=== PATIENT | female | born 1950 | race Caucasian/White ===

== ENCOUNTER → 2018-07-10 12:30 | Outpatient (CLI) | payer MEDICARE ==
[2013-04-08 13:36] VITALS: BMI 35.8
[~2018-07-10 12:30] MED LIST: NORCO 10/325 TA1 TA1 PO
== END | disposition home or self-care (01) ==
LOC: D.MRI 06-18 14:30
DX: M25.551 Pain in right hip (principal)

== ENCOUNTER 2019-01-11 17:23 | Inpatient (IN) | payer MEDICARE ==
[~2019-01-11] VITALS: Ht 171.4 cm; Wt 93.9 kg
[2019-01-11] MEDS ORDERED: LASIX40 MG PO (17:57)
[2019-01-11] MEDS ORDERED: COZAAR50 MG PO (17:58)
[2019-01-11] MEDS ORDERED: K-DUR20 MEQ PO (17:58)
[2019-01-11] MEDS ORDERED: FERROUS FUMARA324 MG PO (17:58)
[2019-01-11] MEDS ORDERED: [UNRECOGNIZED DRUG - OTHER] (17:59)
[2019-01-11] MEDS ORDERED: VITAMIN B-122500 MCG PO (17:59)
[2019-01-11] MEDS ORDERED: GALZIN50 MG PO (18:00)
[2019-01-11] MEDS ORDERED: ASCORBIC ACID500 MG PO (18:00)
[2019-01-11] MEDS ORDERED: MAG-OX 400 MG400 MG PO (18:00)
[2019-01-11 18:59] LABS: BASOPHILS 0.3 % (0-2); EOSINOPHILS 0.1 % (0-7); HEMOGLOBIN 9.7 g/dL (12-16); IMMATURE GRANULOCYTES 0.3 % (0-5); LYMPHOCYTES 23.7 % (15-50); MCH 40.6 pg (26.0-34.0); MCHC 37.3 g/dL (31.0-37.0); MCV 108.8 fL (80.0-100.0); MEAN PLATELET VOLUME 9.9 fL (7.4-10.4); MONOCYTES 7.9 % (2-11); NEUTROPHILS 67.7 % (40-80); PLATELET COUNT 197 10x3/uL (130-400); RBC 2.39 10x6/uL (4.00-5.40); RDW 15.9 % (11.5-14.5); WBC 7.5 10x3/uL (4.8-10.8)
[2019-01-11 19:15] LABS: INR 0.99 (0.85-1.17); PROTIME 12.6 SECONDS (11.6-15.0)
[2019-01-11 19:16] LABS: APTT 23.9 SECONDS (22.8-39.4)
[2019-01-11 19:38] LABS: ALBUMIN 3.4 g/dL (3.4-5.0); ALKALINE PHOSPHATASE 112 U/L (46-116); ALT (SGPT) 19 U/L (10-68); BILIRUBIN - TOTAL 0.57 mg/dL (0.2-1.3); CALC OSMOLALITY 289 mosm/kg (275-300); CALCIUM 8.6 mg/dL (8.5-10.1); CARBON DIOXIDE 27.1 mmol/L (21.0-32.0); CHLORIDE - SERUM 103 mmol/L (98-107); CKMB 1.2 U/L (0.0-3.6); CREATINE KINASE 81 UL (21-215); CREATININE - SERUM 1.8 mg/dL (0.6-1.3); GLUCOSE 127 mg/dL (74-106); MAGNESIUM - SERUM 2.6 mg/dL (1.8-2.4); PROTEIN - SERUM 6.7 g/dL (6.4-8.2); SODIUM 140 mmol/L (136-145); TROPONIN-I < 0.017 ng/mL (0.000-0.060); UREA NITROGEN 39 mg/dL (7-18); eGFR NON AFRICAN AMERICAN 30 mL/min (90-120)
[2019-01-11 19:42] LABS: THYROID STIMULATING HORMONE 73.14 uIU/mL (0.36-3.74)
[2019-01-11 20:14] VITALS: BP 131/52
[2019-01-11 20:44] LABS: APPEARANCE CLEAR (CLEAR); BILIRUBIN NEGATIVE (NEGATIVE); COLOR YELLOW (YELLOW); GLUCOSE NEGATIVE (NEGATIVE); KETONE NEGATIVE (NEGATIVE); NITRITE NEGATIVE (NEGATIVE); PROTEIN NEGATIVE (NEGATIVE); UROBILINOGEN NORMAL (NORMAL)
[2019-01-11 20:45] LABS: RED CELLS - URINE 0-5 /hpf (0-5)
[2019-01-11 20:47] LABS: BACTERIA MODERATE /hpf (NONE SEEN)
--- NOTE | 2019-01-11 21:00 | NUR ---
ADMITTED TO ROOM FROM ER ALERT, ORIENTIATED TO ROOM, SEE ASSESSMENT, CALL LIGHT IN REACH, INSTRUCTED TO CALL FOR ASSISTANCE BEFORE GETTIGN UP, VERBALIZED UNDERSTANDING
[2019-01-12 03:23] VITALS: BP 129/57; BMI 32.0
[2019-01-12 04:59] VITALS: BP 119/49
[2019-01-12 07:30] LABS: % SATURATION 23 % (15-55); IRON 68 ug/dl (35-150); TOTAL IRON BIND CAPACITY 291 ug/dl (260-445); UNSAT IRON BIND CAPACITY 223 ug/dl (150-375)
[2019-01-12 07:39] LABS: ALBUMIN 2.9 g/dL (3.4-5.0); ANION GAP 12.9 mmol/L (8-16); BILIRUBIN - TOTAL 0.44 mg/dL (0.2-1.3); CALCIUM 7.8 mg/dL (8.5-10.1); CARBON DIOXIDE 25.2 mmol/L (21.0-32.0); CREATININE - SERUM 1.6 mg/dL (0.6-1.3); MAGNESIUM - SERUM 2.5 mg/dL (1.8-2.4); POTASSIUM - SERUM 3.1 mmol/L (3.5-5.1); PROTEIN - SERUM 5.3 g/dL (6.4-8.2)
[2019-01-12 07:47] LABS: PHOSPHOROUS 3.8 mg/dL (2.5-4.9)
[2019-01-12 07:48] LABS: T4 THYROXIN - FREE 0.17 ng/dL (0.76-1.46)
[2019-01-12 07:57] LABS: BASOPHILS 0.2 % (0-2); EOSINOPHILS 1.2 % (0-7); HEMATOCRIT 22.5 % (36.0-48.0); HEMOGLOBIN 8.4 g/dL (12-16); IMMATURE GRANULOCYTES 0.4 % (0-5); LYMPHOCYTES 36.3 % (15-50); MCH 40.2 pg (26.0-34.0); MCHC 37.3 g/dL (31.0-37.0); MCV 107.7 fL (80.0-100.0); MONOCYTES 7.1 % (2-11); NEUTROPHILS 54.8 % (40-80); PLATELET COUNT 160 10x3/uL (130-400); RBC 2.09 10x6/uL (4.00-5.40); RDW 15.8 % (11.5-14.5)
[2019-01-12 08:04] LABS: WBC 5.1 10x3/uL (4.8-10.8)
[2019-01-12 08:59] VITALS: BP 122/52
[2019-01-12 13:11] VITALS: BP 128/52
[2019-01-12 14:46] VITALS: Ht 171.4 cm; Wt 93.9 kg
[2019-01-12 16:44] VITALS: BP 136/65
--- NOTE | 2019-01-12 16:55 | NUR ---
I have reviewed this patient and I concur with the Shift Assessment completed by the Licensed Practical Nurse today this shift.
--- NOTE | 2019-01-12 19:50 | NUR ---
UP IN BED WITH EYES OPEN, FAMILY AT BEDSIDE. IV TO LFA WITH FLUIDS INFUSING PER ORDERS. ABLE TO VOICE NEEDS. NO S/S OF ANY DISTRESS. WILL NOTE ANY CHANGE.
[2019-01-12 20:00] VITALS: BP 111/46
[2019-01-13] VITALS: BP 119/52
[2019-01-13 04:00] VITALS: BP 117/54
--- NOTE | 2019-01-13 05:03 | NUR ---
I have reviewed this patient and I concur with the Shift Assessment completed by the Licensed Practical Nurse today this shift.
--- NOTE | 2019-01-13 05:08 | NUR ---
RESTED WELL THIS SHIFT, NO S/S OF ANY ACUTE DISTRESS OR PAIN. WILL NOTE ANY CHANGE.
[2019-01-13 05:43] LABS: BASOPHILS 0.3 % (0-2); HEMOGLOBIN 8.3 g/dL (12-16); IMMATURE GRANULOCYTES 0.8 % (0-5); LYMPHOCYTES 45.5 % (15-50); MCH 41.5 pg (26.0-34.0); MCHC 37.7 g/dL (31.0-37.0); MEAN PLATELET VOLUME 9.9 fL (7.4-10.4); MONOCYTES 7.8 % (2-11); NEUTROPHILS 44.6 % (40-80); PLATELET COUNT 152 10x3/uL (130-400); WBC 3.9 10x3/uL (4.8-10.8)
[2019-01-13 06:01] LABS: ANION GAP 11.1 mmol/L (8-16); CALCIUM 7.1 mg/dL (8.5-10.1); CARBON DIOXIDE 26.2 mmol/L (21.0-32.0); CREATININE - SERUM 1.3 mg/dL (0.6-1.3); MAGNESIUM - SERUM 2.2 mg/dL (1.8-2.4); PHOSPHOROUS 2.9 mg/dL (2.5-4.9); POTASSIUM - SERUM 3.3 mmol/L (3.5-5.1)
--- NOTE | 2019-01-13 07:00 | NUR ---
SHIFT ASSESSMENT COMPLETED. PT CARE ASSUMED, PT AWAKE AND ALERT, NO SIGNS/SYMPTOMS OF PAIN OR DISCOMFORT NOTED AT THIS TIME, CALL LIGHT WITHIN REACH, WILL CONTINUE TO OBSERVE.
--- NOTE | 2019-01-13 07:22 | NUR ---
POTASSIUM OF 3.3 REPORTED, ATTEMPTED TO COVER SECONDARY TO ELECTROLYTE PROTOCOL, PATIENT REFUSED MEDICATION STATING SHE WILL NOT TAKE OUR MEDICATIONS, ONLY HER HOME MEDS AND THAT SHE SIGNED A PAPER IN THE ER STATING SUCH, THIS NURSE GOT PAPER AND ATTEMPTED TO EDUCATE ON MEANING BEHIND PAPER SHE SIGNED, DID NOT COMPREHEND, THIS NURSE WILL LET CASE MANAGEMENT BE AWARE AND REPORT OFF TO ONCOMING SHIFT.
[2019-01-13 09:11] VITALS: BP 123/48
[2019-01-13 11:10] LABS: THYROGLOBULIN ANTIBODY <1.0 IU/mL (0.0-0.9); THYROID PEROXIDASE ABS 72 IU/mL (0-34)
--- NOTE | 2019-01-13 11:33 | MORECARE ---
CASE MANAGEMENT DISCHARGE SUMMARY PATIENT: PETEY ALVAREZ UNIT: [id number] ADM DATE: 01/11/19 AGE: 68 : 49 SEX: F ROOM/BED: D.2238 AUTHOR: CANDI LUCIA PHYSICIAN: REFERRING PHYSICIAN: EUGENIO WOOD MD DATE OF SERVICE: 01/13/19 Discharge Plan Patient Name: PETEY ALVAREZ [facility] [facility] 1950 Planned Disposition: Correction Facility Anticipated Discharge Date: Discharge Date: Expected LOS: Initial Reviewer: [email or web address] Initial Review Date: 01/13/2019 Generated: 01/13/19 12:32 pm Patient Name: PETEY ALVAREZ Page [phone] at 1133 All edits/amendments must be made on the electronic document DICTATION DATE: 01/13/19 113 DIAMOND BLENDER: GABRIEL 01/13/19 1132 RPT#: [id number] DC DATE: STATUS: ADM IN [facility] [address] [place] [address] END OF REPORT
--- NOTE | 2019-01-13 11:44 | MORECARE ---
CASE MANAGEMENT DISCHARGE SUMMARY PATIENT: PETEY ALVAREZ UNIT: [id number] ADM DATE: 01/11/19 AGE: 68 : 49 SEX: F ROOM/BED: D.2238 AUTHOR: CANDI LUCIA PHYSICIAN: REFERRING PHYSICIAN: EUGENIO WOOD MD DATE OF SERVICE: 01/13/19 Discharge Plan Patient Name: PETEY ALVAREZ [facility] [facility] 1950 Planned Disposition: Nursing Home Facility Anticipated Discharge Date: Discharge Date: Expected LOS: Initial Reviewer: [email or web address] Initial Review Date: 01/13/2019 Generated: 01/13/19 12:43 pm DCPIA - Discharge Planning Initial Assessment Updated by [id number]: Carolina Munoz on 01/13/19 11:33 am * Is the patient Alert and Oriented? Yes * PCP MELBA * Pharmacy [facility] * Preadmission Environment Home Alone * ADLs Independent * Equipment Rolling Walker * Other Equipment BENCH * List name and contact numbers for known caregivers / representatives who currently or will assist patient after discharge: EZIO RAMOS, * Community resources currently utilized None * Additional services required to return to the preadmission environment? Yes * Can the patient safely return to the preadmission environment? No * Has this patient been hospitalized within the prior 30 days at any hospital? No Coverage Notice Reviewer: [email or web address] Guerline Munoz Notice Issued Date-Time: 01/13/2019 11:35 Notice Type: Patient Choice Letter Notice Delivered To: Patient Relationship to Patient: Car Sweeper Name: Delivery Method: HAND - Hand Delivered Hilary Days: Prior Verbal Notification: Recipient Understood Notice: Yes Recipient Signature: Yes Med Rec Note Co-signed by Attending: Coverage Notice Comment: ALISA Zhang DP export: 01/13/19 10:33 a Patient Name: PETEY ALVAREZ Page [id number] at 1144 All edits/amendments must be made on the electronic document DICTATION DATE: 01/13/19 1143 SUPPLY CHAIN COORDINATOR: GABRIEL 01/13/19 1143 RPT#: [id number] DC DATE: STATUS: ADM IN [facility] [address] [facility] [place] [address] END OF REPORT
[2019-01-13 12:47] VITALS: BP 141/58
--- NOTE | 2019-01-13 15:43 | MORECARE ---
CASE MANAGEMENT DISCHARGE SUMMARY PATIENT: PETEY ALVAREZ UNIT: [id number] ADM DATE: 01/11/19 AGE: 68 : 49 SEX: F ROOM/BED: D.[facility]8 AUTHOR: CANDI LUCIA PHYSICIAN: REFERRING PHYSICIAN: EUGENIO WOOD MD DATE OF SERVICE: 01/13/19 Discharge Plan Patient Name: PETEY ALVAREZ Facility: [facility]:[place] : 1950 Planned Disposition: Assisted Facility Anticipated Discharge Date: Discharge Date: Expected LOS: Initial Reviewer: [email or web address] Initial Review Date: 01/13/2019 Generated: 01/13/19 4:42 pm DCPIA - Discharge Planning Initial Assessment Updated by [id number]: Carolina Munoz on 01/13/19 11:33 am * Is the patient Alert and Oriented? Yes * PCP MELBA * [facility] * Preadmission Environment Home Alone * ADLs Independent * Equipment Rolling Walker * Other Equipment BENCH * List name and contact numbers for known caregivers / representatives who currently or will assist patient after discharge: EZIO RAMOS, * Community resources currently utilized None * Additional services required to return to the preadmission environment? Yes * Can the patient safely return to the preadmission environment? No * Has this patient been hospitalized within the prior 30 days at any hospital? No External Providers External Provider: [facility] Next Contact Date: Service Request Date: Service Type: Resolution: Reviewer: Comments: Coverage Notice Reviewer: [id number] - Carolina Munoz Notice Issued Date-Time: 01/13/2019 11:35 Notice Type: Patient Choice Letter Notice Delivered To: Patient Relationship to Patient: Hydrotel Operator Name: Delivery Method: HAND - Hand Delivered Hilary Days: Prior Verbal Notification: Recipient Understood Notice: Yes Recipient Signature: Yes Med Rec Note Co-signed by Attending: Coverage Notice Comment: ALISA CHAVEZ export: 01/13/19 10:44 a Patient Name: PETEY ALVAREZ Page 03991 at 1543 All edits/amendments must be made on the electronic document DICTATION DATE: 01/13/19 154 RIVET CATCHER: DM 01/13/19 154 RPT#: [id number] DC DATE: STATUS: ADM IN [facility] [address] [place] [address] END OF REPORT
[2019-01-13 17:01] VITALS: BP 117/55
[2019-01-13 20:00] VITALS: BP 125/81
--- NOTE | 2019-01-13 20:05 | NUR ---
REC'D CHGE OF SHIFT.IN BED SUPINE POSITION WATCHING TV. DENIES ANY NEW COMPLAINTS AT PRESENT TIME.1+EDEMA WITH REDNESS OBSERVED TENDERNESS STILL TO TOUCH. PEDAL PULSES PRESENT. WILL CONTINUE TO MONITOR FOR ANY CHGES IN CURRENT NEUROVASCULAR STATUS AND FOLLOW CURRENT PLAN OF CARE
--- NOTE | 2019-01-14 05:10 | NUR ---
I have reviewed this patient and I concur with the Shift Assessment completed by the Licensed Practical Nurse today this shift.
[2019-01-14 06:48] LABS: BASOPHILS 0.5 % (0-2); EOSINOPHILS 1.7 % (0-7); HEMATOCRIT 22.5 % (36.0-48.0); HEMOGLOBIN 8.4 g/dL (12-16); LYMPHOCYTES 44.5 % (15-50); MCH 41.2 pg (26.0-34.0); MCHC 37.3 g/dL (31.0-37.0); MCV 110.3 fL (80.0-100.0); MONOCYTES 7.3 % (2-11); PLATELET COUNT 163 10x3/uL (130-400); RBC 2.04 10x6/uL (4.00-5.40); RDW 15.7 % (11.5-14.5); WBC 4.1 10x3/uL (4.8-10.8)
[2019-01-14 06:53] LABS: CALCIUM 7.8 mg/dL (8.5-10.1); CARBON DIOXIDE 24.4 mmol/L (21.0-32.0); CREATININE - SERUM 1.2 mg/dL (0.6-1.3); MAGNESIUM - SERUM 2.3 mg/dL (1.8-2.4); PHOSPHOROUS 2.8 mg/dL (2.5-4.9); POTASSIUM - SERUM 3.4 mmol/L (3.5-5.1)
[2019-01-14 09:15] VITALS: BP 149/70
[2019-01-14 13:10] VITALS: BP 133/59
--- NOTE | 2019-01-14 15:26 | NUR ---
OT NOTE: PT COMPLETED BED MOB WITH SPV. PT COMPLETED SIT TO STAND WITH CGA. PT COMPLETED ADL MOB CGA. PT COMPLETED TOILETING TASKS WITH SPV. PT DOING WELL AND REQUIRED CGA WITH DYNAMIC STANDING AND ADL MOB . THANK YOU, JORGE A LOCKETT
[2019-01-14 18:10] VITALS: BP 107/46
[2019-01-14 19:55] VITALS: BP 115/48
[2019-01-15] VITALS: BP 124/51
--- NOTE | 2019-01-15 01:38 | NUR ---
RESTING IN BED NO S/S OF DISTRESS. IV TO LEFT FR WITH NS WITH 20 OF POTASSIUM. ALERT AND ORENTED ABLE TO VOICE NEEDS AND WANTS TO STAFF. BRUSING TO ABD. CALL LIGHT AND WATER IN REACH. BED LOW. NO NEEDS NOTED OR STATED AT THIS TIME.
[2019-01-15 04:00] VITALS: BP 133/61
[2019-01-15 07:04] LABS: CALCIUM 7.9 mg/dL (8.5-10.1); CARBON DIOXIDE 21.7 mmol/L (21.0-32.0); CREATININE - SERUM 1.3 mg/dL (0.6-1.3); MAGNESIUM - SERUM 2.4 mg/dL (1.8-2.4); PHOSPHOROUS 3.4 mg/dL (2.5-4.9); POTASSIUM - SERUM 3.7 mmol/L (3.5-5.1)
--- NOTE | 2019-01-15 07:19 | NUR ---
Nutrition follow-up: Diet: ADA consistent CHO PO intake 100% of some meals; pts food preferences being honored Labs reviewed; glucose WNL. Hiowever, pt reports allergic to sugar. Wt: 207# +BM RDN following.
[2019-01-15 07:52] LABS: BASOPHILS 0.5 % (0-2); EOSINOPHILS 1.9 % (0-7); HEMATOCRIT 20.5 % (36.0-48.0); IMMATURE GRANULOCYTES 0.5 % (0-5); LYMPHOCYTES 45.5 % (15-50); MCH 39.9 pg (26.0-34.0); MCHC 35.6 g/dL (31.0-37.0); MEAN PLATELET VOLUME 10.1 fL (7.4-10.4); MONOCYTES 5.8 % (2-11); NEUTROPHILS 45.8 % (40-80); PLATELET COUNT 153 10x3/uL (130-400); RDW 15.7 % (11.5-14.5); WBC 4.1 10x3/uL (4.8-10.8)
[2019-01-15 07:53] LABS: HEMOGLOBIN 7.3 g/dL (12-16)
[2019-01-15 07:55] LABS: RBC 1.83 10x6/uL (4.00-5.40)
[2019-01-15 08:30] VITALS: BP 143/50
[2019-01-15 12:47] VITALS: BP 126/56
--- NOTE | 2019-01-15 18:46 | NUR ---
I have reviewed this patient and I concur with the Shift Assessment completed by the Licensed Practical Nurse today this shift.
--- NOTE | 2019-01-15 19:46 | NUR ---
IN BED WITH EYES OPEN AND TELEVISION ON, UNIT OF BLOOD INFUSING TO PATENT IV PER ORDERS, VS WNL. ABLE TO VOICE ALL NEEDS, DENIES PAIN AT THIS TIME, BUT REQUESTS CUP OF ICE WATER. WILL NOTE ANY CHANGE.
[2019-01-15 20:00] VITALS: BP 120/45
[2019-01-16] VITALS: BP 121/47
[2019-01-16 04:00] VITALS: BP 123/61
--- NOTE | 2019-01-16 04:35 | NUR ---
I have reviewed this patient and I concur with the Shift Assessment completed by the Licensed Practical Nurse today this shift.
--- NOTE | 2019-01-16 06:07 | NUR ---
WAS UP THIS SHIFT AROUND EVERY TWO HOURS FOR REST ROOM, HAD A HARD TIME GETTING COMFORTABLE IN BED WITH HEELS RESTING ON BED, PILLOW SUPPLIED TO HELP BRIDGE HEELS, PATIENT SATISFIED WITH THIS INTERVENTION. WILL NOTE ANY CHANGE.
[2019-01-16 06:49] LABS: BASOPHILS 0.2 % (0-2); EOSINOPHILS 1.5 % (0-7); LYMPHOCYTES 25.6 % (15-50); MCH 36.1 pg (26.0-34.0); MCHC 36.1 g/dL (31.0-37.0); MEAN PLATELET VOLUME 9.7 fL (7.4-10.4); MONOCYTES 8.2 % (2-11); NEUTROPHILS 63.5 % (40-80); PLATELET COUNT 125 10x3/uL (130-400); RDW 23.6 % (11.5-14.5)
[2019-01-16 06:52] LABS: HEMATOCRIT 26.6 % (36.0-48.0); HEMOGLOBIN 9.6 g/dL (12-16); RBC 2.66 10x6/uL (4.00-5.40)
[2019-01-16 07:08] LABS: ANION GAP 13.2 mmol/L (8-16); CALCIUM 7.8 mg/dL (8.5-10.1); CARBON DIOXIDE 21.5 mmol/L (21.0-32.0); MAGNESIUM - SERUM 2.1 mg/dL (1.8-2.4); PHOSPHOROUS 3.3 mg/dL (2.5-4.9); POTASSIUM - SERUM 3.7 mmol/L (3.5-5.1)
--- NOTE | 2019-01-16 07:37 | NUR ---
PT RESTING IN BED WITH EYES OPEN. BREATHING EVEN AND NONLABORED. ASSISTED OUT OF BED AND TO THE BATHROOM. DENIES ANY FURTHER NEEDS AT THIS TIME. BED LOW, CALL LIGHT IN REACH, RAILS UP X 1. WILL CONTINUE TO MONITOR.
[2019-01-16 09:35] VITALS: BP 140/58
[2019-01-16 13:16] VITALS: BP 117/59
[2019-01-16 17:16] VITALS: BP 131/53
--- NOTE | 2019-01-16 19:15 | NUR ---
PATIENT ALERT AND ORIENTED. WATCHING TV WITH HOB ELEVATED. PATIENT HAS NOTICEABLE EDEMA IN BILATERAL LOWER EXTREMETIES, MAINLY AROUND ANKLE AREA. SKIN TENDER TO TOUCH IN BILATERAL LOWER EXTREMETIES. PATIENT DISPLAYS RANGE OF MOTION IN BILATERAL LOWER EXTREMETIES. DENIES PAIN OTHER THAN TOUCH TO AREA. GOWN STAINED WITH DRIED BLOOD. OFFERED PATIENT SHOWER. STATES THAT IV IN THE LEFT FOREARM IS ITCHY AND BOTHERSOME. ASKED TO BE DC'D IF ABLE. DC'D WITH TIP INTACT. WET PROCESS HEAD MILLER HELPED PATIENT TO SHOWER. DENIES FURTHER ISSUES AT THIS TIME. CALL LIGHT IN REACH. CPOC.
[2019-01-16 20:00] VITALS: BP 144/64
[2019-01-17] VITALS: BP 114/55
[2019-01-17 04:00] VITALS: BP 118/55
[2019-01-17 06:06] LABS: BASOPHILS 0.6 % (0-2); EOSINOPHILS 2.8 % (0-7); HEMATOCRIT 26.1 % (36.0-48.0); HEMOGLOBIN 9.5 g/dL (12-16); IMMATURE GRANULOCYTES 1.1 % (0-5); LYMPHOCYTES 35.1 % (15-50); MCH 36.5 pg (26.0-34.0); MCHC 36.4 g/dL (31.0-37.0); MCV 100.4 fL (80.0-100.0); MEAN PLATELET VOLUME 9.9 fL (7.4-10.4); MONOCYTES 10.2 % (2-11); NEUTROPHILS 50.2 % (40-80); PLATELET COUNT 123 10x3/uL (130-400); WBC 3.6 10x3/uL (4.8-10.8)
[2019-01-17 06:40] LABS: ANION GAP 12.6 mmol/L (8-16); CALCIUM 7.5 mg/dL (8.5-10.1); CARBON DIOXIDE 22.8 mmol/L (21.0-32.0); MAGNESIUM - SERUM 2.2 mg/dL (1.8-2.4); PHOSPHOROUS 3.5 mg/dL (2.5-4.9); POTASSIUM - SERUM 3.4 mmol/L (3.5-5.1)
--- NOTE | 2019-01-17 06:52 | NUR ---
I have reviewed this patient and I concur with the Shift Assessment completed by the Licensed Practical Nurse today this shift.
--- NOTE | 2019-01-17 07:20 | NUR ---
PT RESTING IN BED WITH EYES OPEN PLAYING ON HER CELL PHONE. BREATHING EVEN AND NONLABORED, DENIES ANY PAIN OR NEEDS AT THIS TIME. NO IV ACCESS NOTED. BED LOW, CALL LIGHT IN REACH, RAILS UP X 1.
[2019-01-17 08:07] VITALS: BP 107/47
--- NOTE | 2019-01-17 10:00 | NUR ---
COLLECTED STOOL SAMPLE, PT STATES SHE KNOWS IT WILL HAVE BLOOD IN IT DUE TO THE FACT THAT SHE HAS HEMMOROIDS. DELIVERED TO LAB.
[2019-01-17 14:01] VITALS: BP 129/61
[2019-01-17 17:28] VITALS: BP 125/55
--- NOTE | 2019-01-17 19:15 | NUR ---
ENETERED PATIENT ROOM AND SEVERAL GUESTS VISITING PATIENT. PATIENT DENIES ISSUES AT THIS TIME. WILL RETURN TO PERFORM ASSESSMENT AFTER VISITORS LEAVE. ENCOURAGED PATIENT TO USE CALL LIGHT IF IN NEED OF ASSISTANCE.
[2019-01-17 20:00] VITALS: BP 133/86
--- NOTE | 2019-01-17 20:20 | NUR ---
PATIENT ALERT AND ORIENTED. STATES "I HAD A MUCH BETTER DAY TODAY." PATIENT AMBULATES TO BATHROOM WITH MINIMAL ASSIST. HAS WALKER IN ROOM. PATIENT HAS BRUISING TO STOMACH FROM PREVIOUS LOVENOX INJECTIONS. STATES THAT SHE HAS HAD MINIMAL BLEEDING FROM SITES TODAY. EDUCATED ON UPCOMING MEDICATIONS. DENIES QUESTIONS OR CONCERNS. STATES "I LIKE THE ELIQUIS INSTEAD OF THE SHOTS." CALL LIGHT IS IN REACH. PATIENT DOES NOT HAVE AN IV AT THIS TIME. CPOC.
--- NOTE | 2019-01-18 02:47 | NUR ---
I have reviewed this patient and I concur with the Shift Assessment completed by the Licensed Practical Nurse today this shift.
[2019-01-18 04:00] VITALS: BP 122/55
--- NOTE | 2019-01-18 07:14 | NUR ---
ALERT AND ORIENTED. LUNGS CLEAR BILATERALLY IN ALL WONG. HEART SOUNDS S1 AND S2 HEARD IN ALL WONG. BOWEL SOUNDS ACTIVE X 4. EDEMA TO BLE. SKIN INTACT WITHOUT REDNESS. DENIES PAIN. DENIES NEEDS. BED LOW. CALL GAMBLE AND PERSONAL ITEMS INREACH WILL CONTINUE TO MONITOR.
[2019-01-18 08:34] VITALS: BP 135/51
[2019-01-18 09:06] LABS: POTASSIUM - SERUM 3.8 mmol/L (3.5-5.1)
--- NOTE | 2019-01-18 10:05 | NUR ---
RESTING IN BED. DENIES PAIN. DENIES NEEDS. WILL CONTINUE TO MONITOR.
[2019-01-18 12:38] LABS: BASOPHILS 0.5 % (0-2); EOSINOPHILS 2.9 % (0-7); HEMOGLOBIN 9.6 g/dL (12-16); IMMATURE GRANULOCYTES 0.7 % (0-5); LYMPHOCYTES 38.9 % (15-50); MCH 36.6 pg (26.0-34.0); MCHC 35.6 g/dL (31.0-37.0); MEAN PLATELET VOLUME 9.9 fL (7.4-10.4); MONOCYTES 12.2 % (2-11); NEUTROPHILS 44.8 % (40-80); PLATELET COUNT 125 10x3/uL (130-400); RBC 2.62 10x6/uL (4.00-5.40); RDW 22.5 % (11.5-14.5); WBC 4.2 10x3/uL (4.8-10.8)
[2019-01-18 12:49] LABS: MCV 103.1 fL (80.0-100.0)
[2019-01-18 13:13] LABS: CALCIUM 7.7 mg/dL (8.5-10.1); CARBON DIOXIDE 22.8 mmol/L (21.0-32.0); CREATININE - SERUM 1.1 mg/dL (0.6-1.3)
--- NOTE | 2019-01-18 13:36 | NUR ---
RESTING IN BED. DENIES PAIN. DENIES NEEDS. WILL CONTINUE TO MONITOR.
[2019-01-18 13:48] VITALS: BP 153/63
--- NOTE | 2019-01-18 14:05 | NUR ---
PATIENT IN ROOM CRYING BECAUSE THOUGHT WAS DISCHARGING TO REHAB TODAY BUT WAS TOLD OTHERWISE. SPOKE WITH CASE MANAGEMENT [facility] WHO STATED WILL GO TALK TO PATIENT.
--- NOTE | 2019-01-18 15:23 | NUR ---
OT NOTE: PT IS COOPERATIVE AND EXHIBITS STEADY PROGRESSION WITH FUNCTIONAL ABILITIES. PT COMPLETED DYNAMIC STANDING ACTIVITIES FOR INCREASED I WITH ADLS. PT REQUIRED SBA/CGA. THANK YOU, JORGE A LOCKETT
--- NOTE | 2019-01-18 16:57 | NUR ---
RESTING IN BED. DENIES PAIN. DENIES NEEDS. WILL CONTINUE TO MONITOR.
[2019-01-18 17:18] VITALS: BP 150/70
--- NOTE | 2019-01-18 18:08 | NUR ---
RESTING IN BED. DENIES PAIN. DENIES NEEDS. BED LOW. CALL GAMBLE AND PERSONAL ITEMS IN REACH. WILL CONTINUE TO MONITOR.
--- NOTE | 2019-01-18 20:21 | NUR ---
1900) REC'D AT CHGE OF SHIFT WALKING ROUNDS WITH SHA MIN LOWER EXT REMAINS SWOLLEN WITH SOME REDNESS.FEET PINK AND WARM PEDAL PULSES PRESENT.DOES C/O SOME DECREASE IN SENSATION WIGGLES TOES AND DORSIFLEXES WITHOUT DIFFICULTY.WILL CONTINUE TO MONITOR FOR ANY CHGES.AND FOLLOW CURRENT PLAN OF CARE.
[2019-01-18 21:15] VITALS: BP 131/48
[2019-01-19 01:53] VITALS: BP 128/52
[2019-01-19 05:36] VITALS: BP 138/58
--- NOTE | 2019-01-19 07:45 | NUR ---
ALERT AND ORIENTED. LUNGS CLEAR BILATERALLY IN ALL WONG. HEART SOUNDS S1 AND S2 HEARD IN ALL WONG. BOWEL SOUNDS ACTIVE X 4. SKIN INTACT WITHOUT REDNESS. EDEMA NOTED TO BLE. PATIENT STATES IS MUCH BETTER THAN HAS BEEN. NO IV. DENIES PAIN. DENIES NEEDS. BED LOW. CALL GAMBLE AND PERSONAL ITEMS IN REACH. WILL CONTINUE TO MONITOR.
[2019-01-19 08:59] VITALS: BP 151/58
--- NOTE | 2019-01-19 10:41 | NUR ---
RESTING IN BED. DENIES PAIN. DENIES NEEDS. WILL CONTINUE TO MONITOR.
--- NOTE | 2019-01-19 11:30 | MORECARE ---
CASE MANAGEMENT DISCHARGE SUMMARY PATIENT: PETEY ALVAREZ UNIT: [id number] ADM DATE: 01/11/19 AGE: 68 : 49 SEX: F ROOM/BED: D.2238 AUTHOR: REA,DOC PHYSICIAN: REFERRING PHYSICIAN: EUGENIO WOOD MD DATE OF SERVICE: 01/19/19 Discharge Plan Patient Name: PETEY ALVAREZ Facility: [facility]:[place] : 1950 Planned Disposition: Residential Facility Anticipated Discharge Date: Discharge Date: Expected LOS: Initial Reviewer: [id number] Initial Review Date: 01/13/2019 Generated: 01/19/19 12:29 pm Comments DCP- Discharge Planning Updated by [email or web address]: Carolina Munoz on 01/19/19 10:[address] Patient Name: PETEY ALVAREZ Admission Status: ER Accout number: [id number] Admission Date: 01-11-2019 : 1950 Admission Diagnosis:ACUTE EMBOLISM AND THOMBOS UNSP DEEP VEINS OF L LOW EXT Attending: EUGENIO WOOD Current LOS: 8 Anticipated DC Date: Planned Disposition: Residential Facility Primary Insurance: [employer] ADV Discharge Planning Comments: CM SPOKE WITH [facility] AT [place] AND NEEDS UPDATED NOTES. NOTES FAXED TO [facility] AT [phone]. CM WAITING FOR CALL BACK WITH SNF AUTH. Stock Checkerer: Carolina Munoz DCPIA - Discharge Planning Initial Assessment Updated by [id number]: Carolina Munoz on 01/13/19 11:33 am * Is the patient Alert and Oriented? Yes * PCP MELBA * [facility]acy [facility] * Preadmission Environment Home Alone * ADLs Independent * Equipment Rolling Walker * Other Equipment BENCH * List name and contact numbers for known caregivers / representatives who currently or will assist patient after discharge: EZIO RAMOS, * Community resources currently utilized None * Additional services required to return to the preadmission environment? Yes * Can the patient safely return to the preadmission environment? No * Has this patient been hospitalized within the prior 30 days at any hospital? No Coverage Notice Reviewer: [id number] - Carolina Munoz Notice Issued Date-Time: 01/13/2019 11:35 Notice Type: Patient Choice Letter Notice Delivered To: Patient Relationship to Patient: Performance Specialist Name: Delivery Method: HAND - Hand Delivered Hilary Days: Prior Verbal Notification: Recipient Understood Notice: Yes Recipient Signature: Yes Med Rec Note Co-signed by Attending: Coverage Notice Comment: ALISA CHAVEZ export: 01/13/19 2:43 p Patient Name: PETEY ALVAREZ Page 18767 at 1130 All edits/amendments must be made on the electronic document DICTATION DATE: 01/19/19 1129 METAL MACHINE OPERATOR: GABRIEL 01/19/19 1129 RPT#: [id number] DC DATE: STATUS: ADM IN [address] [place] [address] END OF REPORT
--- NOTE | 2019-01-19 12:34 | NUR ---
RESTING IN BED. DENIES PAIN. DENIES NEEDS. WILL CONTINUE TO MONITOR.
[2019-01-19 14:23] VITALS: BP 122/50
--- NOTE | 2019-01-19 15:08 | NUR ---
OT NOTE: PT COMPLETED HYGIENE TASKS WITH SPV. PT COMPLETED ADL MOB WITH SPV. PT VERY MOTIVATED. PT STATED SHE IS CONCERNED THAT SHE WILL MISS [facility] ON FRIDAY. JULES SUGGESTED SHE SPEAK TO NURSING. THANK YOU, JORGE A LOCKETT
--- NOTE | 2019-01-19 15:35 | NUR ---
RESTING IN BED. DENIES PAIN. DENIES NEEDS. WILL CONTINUE TO MONITOR.
[2019-01-19 17:51] VITALS: BP 145/54
--- NOTE | 2019-01-19 18:20 | NUR ---
RESTING IN BED. DENIES PAIN. DENIES NEEDS. WILL CONTINUE TO MONITOR.
--- NOTE | 2019-01-19 19:40 | NUR ---
in bed talking on phone.lower ext. and feet 1-2+ edema observed with some redness and numbness still.pedal pulse present wiggles toes and dorsiflexes denies calf pain or tenderness at present time. will continue to monitor for any chges in neurovascular status and follow current plan of care.
[2019-01-19 21:16] VITALS: BP 118/56
[2019-01-20 00:56] VITALS: BP 121/47
[2019-01-20 05:54] VITALS: BP 126/55
--- NOTE | 2019-01-20 06:07 | NUR ---
I have reviewed this patient and I concur with the Shift Assessment completed by the Licensed Practical Nurse today this shift.
--- NOTE | 2019-01-20 07:20 | NUR ---
REPORT RECEIVED. PT ALERT AND ORIENTED. SITTING ON SIDE OF BED. ABOUT TO USE WALKER AND GO TO RESTROOM. WAS TOLD IN REPORT THAT SHE IS WAITING ON PLACEMENT TO [facility]. PT DENIES ANY PAIN AT THIS TIME.
[2019-01-20 07:39] LABS: BASOPHILS 0.2 % (0-2); EOSINOPHILS 2.7 % (0-7); HEMATOCRIT 26.4 % (36.0-48.0); HEMOGLOBIN 9.4 g/dL (12-16); IMMATURE GRANULOCYTES 0.5 % (0-5); LYMPHOCYTES 42.3 % (15-50); MCH 36.6 pg (26.0-34.0); MCHC 35.6 g/dL (31.0-37.0); MCV 102.7 fL (80.0-100.0); MONOCYTES 9.5 % (2-11); NEUTROPHILS 44.8 % (40-80); PLATELET COUNT 130 10x3/uL (130-400); RBC 2.57 10x6/uL (4.00-5.40); RDW 21.2 % (11.5-14.5)
[2019-01-20 07:47] LABS: ANION GAP 11.6 mmol/L (8-16); CALCIUM 8.3 mg/dL (8.5-10.1); CARBON DIOXIDE 25.2 mmol/L (21.0-32.0); POTASSIUM - SERUM 3.8 mmol/L (3.5-5.1)
[2019-01-20 08:00] VITALS: BP 131/53
--- NOTE | 2019-01-20 09:00 | NUR ---
SOME TENDERNESS TO LOWER EXTREMITIES. PULSES PALPABLE IN BILATERAL FEET. SOME SWELLING NOTED. NO NEEDS AT THIS TIME. WILL CONTINUE TO MONITOR.
[2019-01-20 10:17] VITALS: BP 131/53
--- NOTE | 2019-01-20 11:03 | NUR ---
PT RESTING QUIETLY. NO DISTRESS NOTED. BED IN LOWEST POSITION. CALL LIGHT IN REACH.
--- NOTE | 2019-01-20 12:20 | MORECARE ---
CASE MANAGEMENT DISCHARGE SUMMARY PATIENT: PETEY ALVAREZ UNIT: [id number] ADM DATE: 01/11/19 AGE: 68 : 49 SEX: F ROOM/BED: D.2238 AUTHOR: REA,DOC PHYSICIAN: REFERRING PHYSICIAN: EUGENIO WOOD MD DATE OF SERVICE: 01/20/19 Discharge Plan Patient Name: PETEY ALVAREZ Facility: [facility]:[place] : 1950 Planned Disposition: Retirement Facility Anticipated Discharge Date: Discharge Date: Expected LOS: Initial Reviewer: [email or web address] Initial Review Date: 01/13/2019 Generated: 01/20/19 1:19 pm Comments DCP- Discharge Planning Updated by [id number]: Carolina Munoz on 01/20/19 11:[address] Patient Name: PETEY ALVAREZ Admission Status: ER Accout number: [id number] Admission Date: 01-11-2019 : 1950 Admission Diagnosis:ACUTE EMBOLISM AND THOMBOS UNSP DEEP VEINS OF L LOW EXT Attending: EUGENIO WOOD Current LOS: 9 Anticipated DC Date: Planned Disposition: Retirement Facility Primary Insurance: [employer] MEDICARE ADV Discharge Planning Comments: Called [facility], states they are still working on auth and I was placed on hold for over 15min., so I had to hang up. I emailed Erin with [employer] to see if she could tell me if [facility] has actually put in an auth. CM WILL FOLLOW AND ASSIST. Vamp Stitcher: Carolina Munoz DCP- Discharge Planning Updated by [id number]: Carolina Munoz on 01/19/19 10:[address] Patient Name: PETEY ALVAREZ Admission Status: ER Accout number: [id number] Admission Date: 01-11-2019 : 1950 Admission Diagnosis:ACUTE EMBOLISM AND THOMBOS UNSP DEEP VEINS OF L LOW EXT Attending: EUGENIO WOOD Current LOS: 8 Anticipated DC Date: Planned Disposition: Retirement Facility Primary Insurance: [employer] MEDICARE ADV Discharge Planning Comments: CM SPOKE WITH [facility] AT [place] AND NEEDS UPDATED NOTES. NOTES FAXED TO [facility] AT [phone]. CM WAITING FOR CALL BACK WITH SNF AUTH. Vamp Stitcher: Carolina Munoz DCPIA - Discharge Planning Initial Assessment Updated by [id number]: Carolina Munoz on 01/13/19 11:33 am * Is the patient Alert and Oriented? Yes * PCP MELBA * [facility] * Preadmission Environment Home Alone * ADLs Independent * Equipment Rolling Walker * Other Equipment BENCH * List name and contact numbers for known caregivers / representatives who currently or will assist patient after discharge: EZIO RAMOS, * Community resources currently utilized None * Additional services required to return to the preadmission environment? Yes * Can the patient safely return to the preadmission environment? No * Has this patient been hospitalized within the prior 30 days at any hospital? No Coverage Notice Reviewer: [id number] - Carolina Munoz Notice Issued Date-Time: 01/13/2019 11:35 Notice Type: Patient Choice Letter Notice Delivered To: Patient Relationship to Patient: Train System Operator Name: Delivery Method: HAND - Hand Delivered Hilary Days: Prior Verbal Notification: Recipient Understood Notice: Yes Recipient Signature: Yes Med Rec Note Co-signed by Attending: Coverage Notice Comment: RUTHY CHAVEZ export: 01/19/19 10:30 a Patient Name: PETEY ALVAREZ Page 21775 at 1220 All edits/amendments must be made on the electronic document DICTATION DATE: 01/20/191218 GENETICS PHYSICIAN: GABRIEL 01/20/19 1219 RPT#: [id number] DC DATE: STATUS: ADM IN [facility] [address] [place] [address] END OF REPORT
[2019-01-20 13:44] VITALS: BP 133/58
--- NOTE | 2019-01-20 15:11 | NUR ---
nUtrition follow-up: Diet: ADA consistent CHO PO intake 75-100% of meals Labs reviewed Wt: 204# +BM Pt to d/c to [facility] RDN following.
--- NOTE | 2019-01-20 15:22 | MORECARE ---
CASE MANAGEMENT DISCHARGE SUMMARY PATIENT: PETEY ALVAREZ UNIT: [id number] ADM DATE: 01/11/19 AGE: 68 : 49 SEX: F ROOM/BED: D.2238 AUTHOR: REA,DOC PHYSICIAN: REFERRING PHYSICIAN: EUGENIO WOOD MD DATE OF SERVICE: 01/20/19 Discharge Plan Patient Name: PETEY ALVAREZ Facility: [facility]:[place] : 1950 Planned Disposition: Alf Facility Anticipated Discharge Date: Discharge Date: Expected LOS: Initial Reviewer: [email or web address] Initial Review Date: 01/13/2019 Generated: 01/20/19 4:22 pm Comments DCP- Discharge Planning Updated by [id number]: Carolina Munoz on 01/20/19 2:[address] Patient Name: PETEY ALVAREZ Admission Status: ER Accout number: [id number] Admission Date: 01-11-2019 : 1950 Admission Diagnosis:ACUTE EMBOLISM AND THOMBOS UNSP DEEP VEINS OF L LOW EXT Attending: EUGENIO WOOD Current LOS: 9 Anticipated DC Date: Planned Disposition: Alf Facility Primary Insurance: [employer]IC[employer] ADV Discharge Planning Comments: Called [facility], states they are still working on auth and I was placed on hold for over 15min., so I had to hang up. I emailed Erin with [facility] to see if she could tell me if [facility] has actually put in an auth. CM WILL FOLLOW AND ASSIST. Used Car Make Ready Mechanic: Carolina Munoz Appended by Carolina Munoz on 01/20/2019 15:16 CDT: RECEIVED AUTH FOR [facility] FROM [facility] WITH [facility]. DANYELLE AND AVILA GUERRERO AT [facility] [phone], LEFT VOICE MESSAGE. DCP- Discharge Planning Updated by [email or web address]: Carolina Munoz on 01/19/19 10:[address] Patient Name: PETEY ALVAREZ Admission Status: ER Accout number: [id number] Admission Date: 01-11-2019 : 1950 Admission Diagnosis:ACUTE EMBOLISM AND THOMBOS UNSP DEEP VEINS OF L LOW EXT Attending: EUGENIO WOOD Current LOS: 8 Anticipated DC Date: Planned Disposition: Alf Facility Primary Insurance: [employer]ICARE ADV Discharge Planning Comments: CM SPOKE WITH [facility] AT [place] AND NEEDS UPDATED NOTES. NOTES FAXED TO [facility] AT [phone]. CM WAITING FOR CALL BACK WITH SNF AUTH. Used Car Make Ready Mechanic: Carolina Munoz DCPIA - Discharge Planning Initial Assessment Updated by [email or web address]: Carolina Munoz on 01/13/19 11:33 am * Is the patient Alert and Oriented? Yes * PCP MELBA * [facility] * Preadmission Environment Home Alone * ADLs Independent * Equipment Rolling Walker * Other Equipment BENCH * List name and contact numbers for known caregivers / representatives who currently or will assist patient after discharge: EZIO RAMOS, * Community resources currently utilized None * Additional services required to return to the preadmission environment? Yes * Can the patient safely return to the preadmission environment? No * Has this patient been hospitalized within the prior 30 days at any hospital? No Coverage Notice Reviewer: [email or web address] - Carolina Munoz Notice Issued Date-Time: 01/13/2019 11:35 Notice Type: Patient Choice Letter Notice Delivered To: Patient Relationship to Patient: Assistant Financial Accountant Name: Delivery Method: HAND - Hand Delivered Hilary Days: Prior Verbal Notification: Recipient Understood Notice: Yes Recipient Signature: Yes Med Rec Note Co-signed by Attending: Coverage Notice Comment: RUTHY Zhang DP export: 01/20/19 11:20 a Patient Name: PETEY ALVAREZ Page [id number] at 1522 All edits/amendments must be made on the electronic document DICTATION DATE: 01/20/19 1521 PERSONALIZED LIVING ASSISTANT: GABRIEL 01/20/19 1521 RPT#: [id number] DC DATE: STATUS: ADM IN [facility] [address] [place] [address] END OF REPORT
[2019-01-20] MEDS ORDERED: ASPIRIN325 MG PO (15:39)
[2019-01-20] MEDS ORDERED: SYNTHROID50 MCG PO (15:40)
[2019-01-20] MEDS ORDERED: FOLIC ACID1 MG PO (15:40)
[2019-01-20] MEDS ORDERED: PROTONIX40 MG PO (15:40)
[2019-01-20] MEDS ORDERED: ELIQUIS5 MG PO (15:41)
--- NOTE | 2019-01-20 15:44 | MORECARE ---
CASE MANAGEMENT DISCHARGE SUMMARY PATIENT: PETEY ALVAREZ UNIT: [id number] ADM DATE: 01/11/19 AGE: 68 : 49 SEX: F ROOM/BED: D.2238 AUTHOR: REA,DOC PHYSICIAN: REFERRING PHYSICIAN: EUGENIO WOOD MD DATE OF SERVICE: 01/20/19 Discharge Plan Patient Name: PETEY ALVAREZ Facility: [facility]:[place] : 1950 Planned Disposition: [facility] Facility Anticipated Discharge Date: Discharge Date: Expected LOS: Initial Reviewer: [email or web address] Initial Review Date: 01/13/2019 Generated: 01/20/19 4:44 pm Comments DCP- Discharge Planning Updated by [id number]: Carolina Munoz on 01/20/19 2:[address] Patient Name: PETEY ALVAREZ Admission Status: ER Accout number: [id number] Admission Date: 01-11-2019 : 1950 Admission Diagnosis:ACUTE EMBOLISM AND THOMBOS UNSP DEEP VEINS OF L LOW EXT Attending: EUGENIO WOOD Current LOS: 9 Anticipated DC Date: Planned Disposition: [facility] Facility Primary Insurance: [employer] ADV Discharge Planning Comments: Called [facility], states they are still working on auth and I was placed on hold for over 15min., so I had to hang up. I emailed Erin with [employer] to see if she could tell me if [facility] has actually put in an auth. CM WILL FOLLOW AND ASSIST. Insurance Job Titles: Carolina Munoz Appended by Carolina Munoz on 01/20/2019 15:16 CDT: RECEIVED AUTH FOR [facility] FROM [facility] WITH [employer]. DANYELLE AND AVILA PLASENCIAER AT [facility] [phone], LEFT VOICE MESSAGE. Appended by Carolina Munoz on 01/20/2019 15:37 CDT: PATIENT ACCEPTED, AVILA FROM [facility] CALLED AND THEY WILL HAVE VAN TO RUBBER AND PLASTICS WORKER BEFORE 5 TODAY. DCP- Discharge Planning Updated by [id number]: Carolina Munoz on 01/19/19 10:[address] Patient Name: PETEY ALVAREZ Admission Status: ER Accout number: [id number] Admission Date: 01-11-2019 : 1950 Admission Diagnosis:ACUTE EMBOLISM AND THOMBOS UNSP DEEP VEINS OF L LOW EXT Attending: EUGENIO WOOD Current LOS: 8 Anticipated DC Date: Planned Disposition: [facility] Facility Primary Insurance: [employer] ADV Discharge Planning Comments: CM SPOKE WITH [facility] AT [facility] AND NEEDS UPDATED NOTES. NOTES FAXED TO [facility] AT [phone]. CM WAITING FOR CALL BACK WITH SNF AUTH. Insurance Job Titles: Carolina Munoz DCPIA - Discharge Planning Initial Assessment Updated by [email or web address]: Carolina Munoz on 01/13/19 11:33 am * Is the patient Alert and Oriented? Yes * PCP [facility] * [facility]acy [facility] * Preadmission Environment Home Alone * ADLs Independent * Equipment Rolling Walker * Other Equipment BENCH * List name and contact numbers for known caregivers / representatives who currently or will assist patient after discharge: EZIO RAMOS, * Community resources currently utilized None * Additional services required to return to the preadmission environment? Yes * Can the patient safely return to the preadmission environment? No * Has this patient been hospitalized within the prior 30 days at any hospital? No Coverage Notice Reviewer: [id number] - Carolina Munoz Notice Issued Date-Time: 01/13/2019 11:35 Notice Type: Patient Choice Letter Notice Delivered To: Patient Relationship to Patient: Sensor Operator Name: Delivery Method: HAND - Hand Delivered Hilary Days: Prior Verbal Notification: Recipient Understood Notice: Yes Recipient Signature: Yes Med Rec Note Co-signed by Attending: Coverage Notice Comment: ROSACRANFORD Last DP export: 01/20/19 2:22 p Patient Name: PETEY ALVAREZ Page [id number] at 1544 All edits/amendments must be made on the electronic document DICTATION DATE: 01/20/19 154 CYLINDER PRESS FEEDER: GABRIEL 01/20/19 1544 RPT#: [id number] DC DATE: STATUS: ADM IN [facility] [address] [place] [address] END OF REPORT
--- NOTE | 2019-01-20 16:06 | NUR ---
REPORT CALLED TO BRIAN AT [facility].
--- NOTE | 2019-01-20 16:06 | NUR ---
PATIENT DRESSED AND WAITING FOR TRANSPORTATION. NO IV IN. CALL [facility] WITHIN REACH.
[2019-01-20 17:08] VITALS: BP 125/68
--- NOTE | 2019-01-28 08:31 | MORECARE ---
CASE MANAGEMENT DISCHARGE SUMMARY PATIENT: PETEY ALVAREZ UNIT: [id number] ADM DATE: 01/11/19 AGE: 68 : 49 SEX: F ROOM/BED: D.2238 AUTHOR: REA,DOC PHYSICIAN: REFERRING PHYSICIAN: EUGENIO WOOD MD DATE OF SERVICE: 01/28/19 Discharge Plan Patient Name: PETEY ALVAREZ Facility: [facility]:[place] : 1950 Planned Disposition: Half-Way Facility Anticipated Discharge Date: Discharge Date: 01/20/2019 Expected LOS: 0 Initial Reviewer: [id number] Initial Review Date: 01/13/2019 Generated: 01/28/19 9:30 am Comments DCP- Discharge Planning Updated by [id number]: Carolina Munoz on 01/20/19 2:[address] Patient Name: PETEY ALVAREZ Admission Status: ER Accout number: [id number] Admission Date: 01-11-2019 : 1950 Admission Diagnosis:ACUTE EMBOLISM AND THOMBOS UNSP DEEP VEINS OF L LOW EXT Attending: EUGENIO WOOD Current LOS: 9 Anticipated DC Date: Planned Disposition: Half-Way Facility Primary Insurance: [facility] [employer] ADV Discharge Planning Comments: Called [facility], they are still working on auth and I was placed on hold for over 15min., so I had to hang up. I emailed Erin with [employer] to see if she could tell me if [facility] has actually put in an auth. CM WILL FOLLOW AND ASSIST. Sizing Machine And Drier Operator: Carolina Munoz Appended by Carolina Munoz on 01/20/2019 15:16 CDT: RECEIVED AUTH FOR [facility] FROM [facility] WITH [employer]. DANYELLE AND AVILA GUERRERO AT [facility] [phone], LEFT VOICE MESSAGE. Appended by Carolina Munoz on 01/20/2019 15:37 CDT: PATIENT ACCEPTED, AVILA FROM [facility] CALLED AND THEY WILL HAVE VAN TO CCO & PRESIDENT BEFORE 5 TODAY. DCP- Discharge Planning Updated by [id number]: Carolina Munoz on 01/19/19 10:[address] Patient Name: PETEY ALVAREZ Admission Status: ER Accout number: [id number] Admission Date: 01-11-2019 : 1950 Admission Diagnosis:ACUTE EMBOLISM AND THOMBOS UNSP DEEP VEINS OF L LOW EXT Attending: EUGENIO WOOD Current LOS: 8 Anticipated DC Date: Planned Disposition: Half-Way Facility Primary Insurance: [employer] ADV Discharge Planning Comments: CM SPOKE WITH VAL AT [facility] AND NEEDS UPDATED NOTES. NOTES FAXED TO [facility] AT [phone]. CM WAITING FOR CALL BACK WITH SNF AUTH. Sizing Machine And Drier Operator: Carolina Munoz DCPIA - Discharge Planning Initial Assessment Updated by [id number]: Carolina Munoz on 01/13/19 11:33 am * Is the patient Alert and Oriented? Yes * PCP [facility] * Pharmacy [facility] * Preadmission Environment Home Alone * ADLs Independent * Equipment Rolling Walker * Other Equipment BENCH * List name and contact numbers for known caregivers / representatives who currently or will assist patient after discharge: EZIO RAMOS, * Community resources currently utilized None * Additional services required to return to the preadmission environment? Yes * Can the patient safely return to the preadmission environment? No * Has this patient been hospitalized within the prior 30 days at any hospital? No Coverage Notice Reviewer: [id number] - Carolina Munoz Notice Issued Date-Time: 01/13/2019 11:35 Notice Type: Patient Choice Letter Notice Delivered To: Patient Relationship to Patient: Terrazzo Roller Name: Delivery Method: HAND - Hand Delivered Hilary Days: Prior Verbal Notification: Recipient Understood Notice: Yes Recipient Signature: Yes Med Rec Note Co-signed by Attending: Coverage Notice Comment: ROSASTREETMAN Vicente DP export: 01/20/19 2:44 p Patient Name: PETEY ALVAREZ Page 02125 at 0831 All edits/amendments must be made on the electronic document DICTATION DATE: 01/28/19829 PAINT SPECIALIST: GABRIEL 01/28/19829 RPT#: [id number] DC DATE:01/20/19 STATUS: DIS IN [facility] [address] [place] [address] END OF REPORT
== END 2019-01-20 17:15 | DRG 683 ==
LOC: D.ER 17:23 → D.MS 21:18
PROVIDERS: Family Medicine; ADMIT Internal Medicine Nephrology; ATTEND Internal Medicine Nephrology
DX: N17.9 Acute kidney failure, unspecified (principal); I82.402 Acute embolism and thrombosis of unspecified deep veins of left lower extremity; N39.0 Urinary tract infection, site not specified; E03.9 Hypothyroidism, unspecified; D53.9 Nutritional anemia, unspecified; E87.6 Hypokalemia; I12.9 Hypertensive chronic kidney disease with stage 1 through stage 4 chronic kidney disease, or unspecified chronic kidney disease; N18.9 Chronic kidney disease, unspecified; M19.90 Unspecified osteoarthritis, unspecified site; M71.22 Synovial cyst of popliteal space [Baker], left knee